=== PATIENT | female | born 1980 | race Two or more races ===

== ENCOUNTER 2017-03-20 18:15 | Emergency (ER) | payer MEDICAID ==
[~2017-03-20] VITALS: Ht 162.6 cm; Wt 70.0 kg
[~2017-03-20 18:15] MED LIST: ADVAIR 50028 BLISTE1 PO; ALAWAY10 M1 OP; ALBUTEROL0.63 MG/1 IH; ALBUTEROL2.5 MG/3 M IH; ALLERGY MEDICAT25 MG PO; AMOX TR-K CLV1 EAC4 PO; BENADRYL ALLERG25 M1 PO; BIRTH CONTROL; FLONASE ALLERG9.9 ML; INHALER; MONTELUKAST SOD10 M2 PO; NORCO 5-325 TA1 EACH PO; PREDNISONE10 M1 PO; PREDNISONE20 M1 PO; PROAIR HFA8.5 GM INH; PROVENTIL HFA6.7 G1 IH; RANITIDINE HCL75 M1 PO; SINGULAIR10 M1 PO; ZANTAC150 M1 PO; ZITHROMAX250 M1 PO; ZOFRAN ODT4 MG PO; [UNRECOGNIZED DRUG - OTHER] PO; [UNRECOGNIZED DRUG - OTHER] PO
[2017-03-20] MEDS ORDERED: IPRAT-ALBUT 0.5-3 ML IH (18:38)
[2017-03-20] MEDS ORDERED: ACID CONTROL150 M2 PO (18:40)
[2017-03-20] MEDS ORDERED: MOBIC7.5 M2 PO (18:40)
[2017-03-20] MEDS ORDERED: ZITHROMAX250 M1 PO (18:51)
== END 2017-03-20 19:03 ==
LOC: EDMED 18:15
DX: J32.9 Chronic sinusitis, unspecified (principal); J45.909 Unspecified asthma, uncomplicated; Z79.899 Other long term (current) drug therapy